=== PATIENT | female | born 1965 | race Caucasian/White ===

== ENCOUNTER 2020-04-04 12:48 | Outpatient (CLI) | payer MEDICARE, MEDICAID ==
[2020-04-04 18:20] LABS: BASOPHILS # (AUTO) 0.1 10^3/uL (0.0-0.1); BASOPHILS % (AUTO) 0.7 %; EOSINOPHILS # (AUTO) 0.5 10^3/uL (0.0-0.7); HGB - HEMOGLOBIN 14.1 g/dL (12.0-16.0); LYMPHOCYTES # (AUTO) 2.3 10^3/uL (1.5-3.5); LYMPHOCYTES % (AUTO) 25.3 %; MEAN CORPUSCULAR HGB CONC 33.9 g/dL (32.0-36.0); MEAN CORPUSCULAR VOLUME 97.4 fL (81.0-99.0); MEAN PLATELET VOLUME 10.7 fL (7.9-10.8); MONOCYTES # (AUTO) 0.6 10^3/uL (0.0-1.0); MONOCYTES % (AUTO) 6.2 %; NEUTROPHILS # (AUTO) 5.6 10^3/uL (1.5-6.6); NEUTROPHILS % (AUTO) 62.5 %; PLT - PLATELET COUNT 258 10^3/uL (130-450); RED BLOOD COUNT 4.27 10^6/uL (4.20-5.40); RED CELL DISTRIBUTION WIDTH 12.8 % (12.0-15.0); WHITE BLOOD COUNT 8.9 x10^3/uL (4.8-10.8)
[2020-04-04 18:57] LABS: ALBUMIN 4.2 g/dL (3.2-5.5); ALBUMIN/GLOBULIN RATIO 1.2 (1.0-2.2); ALKALINE PHOSPHATASE 84 IU/L (42-121); ALT ALANINE AMINOTRANSFERASE 32 IU/L (10-60); AST ASPARTATE AMINOTRANSFERASE 30 IU/L (10-42); BILIRUBIN,TOTAL 0.3 mg/dL (0.2-1.0); BUN - BLOOD UREA NITROGEN 15 mg/dL (6-20); CALCIUM 9.5 mg/dL (8.5-10.3); CARBON DIOXIDE - CO2 27 mmol/L (21-32); CHLORIDE 98 mmol/L (101-111); CHOLESTEROL 366 mg/dL; CREATININE 0.7 mg/dL (0.4-1.0); GLUCOSE 106 mg/dL (70-100); HDL CHOLESTEROL 61 mg/dL; LDL CHOLESTEROL,CALCULATED 243 mg/dL; SODIUM 138 mmol/L (135-145); TOTAL PROTEIN 7.8 g/dL (6.7-8.2); VLDL CHOLESTEROL 62 mg/dL
[2020-04-04 19:23] LABS: FOLATE 7.92 ng/mL (5.90 - >24.8)
[2020-04-04 20:13] LABS: HEMOGLOBIN A1c% 6.2 % (4.27-6.07)
== END 2020-04-04 23:59 | disposition home or self-care (01) ==
LOC: LAB.WCP 12:48
PROVIDERS: ATTEND Physician Assistant
DX: I10 Essential (primary) hypertension (principal); E78.5 Hyperlipidemia, unspecified; R20.2 Paresthesia of skin; E11.9 Type 2 diabetes mellitus without complications
CPT/HCPCS: 36415; 80053; 80061; 82607; 82746; 83036; 83721; 85025

== ENCOUNTER 2020-05-24 07:00 | Outpatient (CLI) | payer MEDICARE | END 2020-05-24 23:59 | disposition home or self-care (01) | LOC: LAB.R 07:00 | PROVIDERS: ATTEND Physician Assistant | DX: R19.7 Diarrhea, unspecified (principal) | CPT/HCPCS: 81599; 87045; 87046; 87177; 87209; 87427 ==

== ENCOUNTER 2020-05-26 15:50 | Outpatient (CLI) | payer MEDICARE, MEDICAID ==
[2020-05-26 19:27] LABS: H. PYLORIS ANTIGEN STL NEGATIVE (Negative)
== END 2020-05-26 23:59 | disposition home or self-care (01) ==
LOC: LAB.WCP 15:50
PROVIDERS: ATTEND Physician Assistant
DX: R19.7 Diarrhea, unspecified (principal)
CPT/HCPCS: 87338; 87493

== ENCOUNTER 2020-12-01 08:00 | Outpatient (CLI) | payer MEDICARE, MEDICAID ==
--- NOTE | 2020-12-01 17:40 | XRAY Report ---
PROCEDURE: Shoulder 2 View LT INDICATIONS: L SHOULDER PX TECHNIQUE: 2 views of the shoulder were acquired. COMPARISON: None. FINDINGS: Bones: No fractures or dislocations. No suspicious bony lesions. Visualized ribs appear intact. Mo derate acromioclavicular joint osteoarthritis. Mild glenohumeral joint osteoarthritis. Soft tissues: Small calcifications noted adjacent to the lateral margin humeral head concerning for c alcific tendinitis. Small, approximately 2 mm rounded ossification noted in the axillary pouch of the glenohumeral joint concerning for intra-articular loose body. IMPRESSION: 1. No fracture. No acute osseous lesion. If there persistent symptoms or continued clinical concern f or pathology, then repeat plain film radiographs (7-10 days) or advanced imaging (CT, MR, bone scan) should be considered for further evaluation. 2. Moderate acromioclavicular joint and mild glenohumeral joint osteoarthritis. 3. Possible rotator cuff calcific tendinitis. 4. Possible 3 mm ossified glenohumeral joint intra-articular loose body. Reviewed by: Vanessa Dorsey MD, PhD on 12/01/2020 5:39 PM PDT Approved by: Vanessa Dorsey MD, PhD on 12/01/2020 5:39 PM PDT Station ID: [id number]
== END 2020-12-01 23:59 | disposition home or self-care (01) ==
LOC: DI.N 08:00
PROVIDERS: ATTEND Family Medicine
DX: M25.512 Pain in left shoulder (principal); M19.012 Primary osteoarthritis, left shoulder

== ENCOUNTER 2021-01-26 08:00 | Outpatient (CLI) | payer MEDICARE, MEDICAID ==
[2021-01-26 18:04] LABS: BASOPHILS # (AUTO) 0.1 10^3/uL (0.0-0.1); BASOPHILS % (AUTO) 0.6 %; EOSINOPHILS # (AUTO) 0.6 10^3/uL (0.0-0.7); EOSINOPHILS % (AUTO) 7.3 %; HCT - HEMATOCRIT 39.9 % (37.0-47.0); HGB - HEMOGLOBIN 13.6 g/dL (12.0-16.0); LYMPHOCYTES # (AUTO) 2.1 10^3/uL (1.5-3.5); LYMPHOCYTES % (AUTO) 25.6 %; MEAN CORPUSCULAR HGB CONC 34.1 g/dL (32.0-36.0); MEAN CORPUSCULAR VOLUME 96.8 fL (81.0-99.0); MEAN PLATELET VOLUME 10.8 fL (7.9-10.8); MONOCYTES # (AUTO) 0.4 10^3/uL (0.0-1.0); MONOCYTES % (AUTO) 5.3 %; NEUTROPHILS # (AUTO) 5.1 10^3/uL (1.5-6.6); NEUTROPHILS % (AUTO) 60.8 %; PLT - PLATELET COUNT 262 10^3/uL (130-450); RED BLOOD COUNT 4.12 10^6/uL (4.20-5.40); WHITE BLOOD COUNT 8.3 x10^3/uL (4.8-10.8)
[2021-01-26 18:23] LABS: ALBUMIN 4.1 g/dL (3.2-5.5); ALBUMIN/GLOBULIN RATIO 1.2 (1.0-2.2); ALKALINE PHOSPHATASE 84 IU/L (42-121); ALT ALANINE AMINOTRANSFERASE 36 IU/L (10-60); AST ASPARTATE AMINOTRANSFERASE 31 IU/L (10-42); BILIRUBIN,TOTAL 0.5 mg/dL (0.2-1.0); BUN - BLOOD UREA NITROGEN 11 mg/dL (6-20); CARBON DIOXIDE - CO2 26 mmol/L (21-32); CHLORIDE 101 mmol/L (101-111); CHOL/HDL RATIO 6.6 (<4.4); CHOLESTEROL 356 mg/dL; CREATININE 0.7 mg/dL (0.4-1.0); GFR - MDRD 87 (>89); GLUCOSE 204 mg/dL (70-100); HDL CHOLESTEROL 54 mg/dL; LDL CHOLESTEROL,CALCULATED 227 mg/dL; LDL/HDL RATIO 4.2 (<4.4); POTASSIUM 3.6 mmol/L (3.5-5.0); SODIUM 136 mmol/L (135-145); TOTAL PROTEIN 7.4 g/dL (6.7-8.2); TRIGLYCERIDES 374 mg/dL; VLDL CHOLESTEROL 75 mg/dL
[2021-01-26 18:25] LABS: CREATININE,URINE 77.5 mg/dL; MICROALBUM/CREATININE RATIO,UR 6.5 ug/mg (<30.0); MICROALBUMIN,URINE 0.5 mg/dL (0-300.0)
[2021-01-26 20:31] LABS: ESTIMATED AVERAGE GLUCOSE 151 mg/dL (70-100); HEMOGLOBIN A1c% 6.9 % (4.27-6.07)
[2021-01-26 21:10] LABS: THYROID STIMULATING HORMONE 0.67 uIU/mL (0.34-5.60)
== END 2021-01-26 23:59 | disposition home or self-care (01) ==
LOC: LAB.WCP 08:00
PROVIDERS: ATTEND Family Medicine
DX: E11.9 Type 2 diabetes mellitus without complications (principal); E53.8 Deficiency of other specified B group vitamins
CPT/HCPCS: 36415; 80053; 80061; 82043; 82570; 82607; 83036; 83721; 84443; 85025